=== PATIENT | female | born 1955 | race Caucasian/White ===

== ENCOUNTER 2020-05-31 09:48 | Emergency (ER) | payer MEDICARE, OTHER ==
[~2020-05-31] VITALS: Ht 157.5 cm; Wt 67.4 kg
[2020-05-31] MEDS ORDERED: NS 1,000 ML IV ONE (10:30)
--- NOTE | 2020-05-31 10:32 | REPVR ---
PROCEDURE INFORMATION: Exam: CT Head Without Contrast Exam date and time: 05/31/2020 10:12 AM Age: 65 years old Clinical indication: Syncope and collapse TECHNIQUE: Imaging protocol: Computed tomography of the head without contrast. Radiation optimization: All CT scans at this facility use at least one of these dose optimization techniques: automated exposure control; mA and/or kV adjustment per patient size (includes targeted exams where dose is matched to clinical indication); or iterative reconstruction. COMPARISON: No relevant prior studies available. FINDINGS: Brain: There is no acute intracranial hemorrhage or mass effect. Mild diffuse volume loss is within the range of normal for patient age. There are small vessel ischemic changes within the periventricular and subcortical white matter, but the normal bundy/white matter delineation is maintained. Ventricles: No ventriculomegaly. Bones/joints: Unremarkable. No acute fracture. Paranasal sinuses: Visualized sinuses are unremarkable. No fluid levels. Mastoid air cells: Visualized mastoid air cells are well aerated. Soft tissues: Unremarkable. IMPRESSION: No acute hemorrhage or edema. Electronically signed by: Jen Montiel On 05/31/2020 10:31:44 AM
--- NOTE | 2020-05-31 10:37 | REPVR ---
PROCEDURE INFORMATION: Exam: XR Chest, 1 View Exam date and time: 05/31/2020 10:12 AM Age: 65 years old Clinical indication: Shortness of breath; Additional info: Syncope/near-syncope TECHNIQUE: Imaging protocol: XR of the chest Views: 1 view. COMPARISON: No relevant prior studies available. FINDINGS: Lungs: Unremarkable. No consolidation. Pleural space: Unremarkable. No pleural effusion. No pneumothorax. Heart/Mediastinum: Unremarkable. No cardiomegaly. Bones/joints: Unremarkable. IMPRESSION: No acute findings. Electronically signed by: Jen Montiel On 05/31/2020 10:36:49 AM
[2020-05-31] MEDS ORDERED: ISOVUE-370 76% 100ML VIAL As Ordered ONE (10:44)
[2020-05-31 10:54] LABS: BASO % 0.2 % (0.0-1.0); EOS % 0.3 % (0.0-3.0); HEMATOCRIT 40.7 % (36.0-47.0); HEMOGLOBIN 14.5 g/dl (12.0-15.5); LYMPH % 7.8 % (24.0-44.0); MEAN CORPUSCULAR HEMOGLOBIN 30.2 pg (27.0-33.0); MEAN CORPUSCULAR HGB CONC 35.6 g/dl (32.0-36.5); MEAN CORPUSCULAR VOLUME 84.8 fl (80.0-96.0); MONO # 1.6 10^3/uL (0.0-0.8); NEUTROPHILS # 9.8 10^3/uL (1.5-8.5); NEUTROPHILS % 78.3 % (36.0-66.0); PLATELET COUNT, AUTOMATED 319 10^3/uL (150-450); WHITE BLOOD COUNT 12.5 10^3/uL (4.0-10.0)
[2020-05-31] MEDS ORDERED: ASPIRIN 81 MG CHEW TABLET PO ONE (11:00)
[2020-05-31] MEDS ORDERED: POTASSIUM CHLORIDE 10 MEQ SR TABLET PO ONE (11:00)
[2020-05-31] MEDS ORDERED: NITROGLYCERIN/D5W 100MCG/ML 250 ML IV SCH (11:07)
--- NOTE | 2020-05-31 11:31 | REPVR ---
PROCEDURE INFORMATION: Exam: CT Angiography Chest With Contrast Exam date and time: 05/31/2020 10:40 AM Age: 65 years old Clinical indication: Chest pain; Additional info: RO pe TECHNIQUE: Imaging protocol: Computed tomographic angiography of the chest with intravenous contrast. 3D rendering (Not supervised by radiologist): MIP and/or 3D reconstructed images were created by the technologist. Radiation optimization: All CT scans at this facility use at least one of these dose optimization techniques: automated exposure control; mA and/or kV adjustment per patient size (includes targeted exams where dose is matched to clinical indication); or iterative reconstruction. Contrast material: ISOVUE 370; Contrast volume: 75 ml; Contrast route: INTRAVENOUS (IV); COMPARISON: CR PORTABLE CHEST X-RAY 05/31/2020 10:24 AM FINDINGS: Pulmonary arteries: Normal. No pulmonary emboli. Aorta: Unremarkable. No aortic aneurysm. No aortic dissection. Lungs: There is a 5 mm nodule within the right middle lobe. There are right basilar dependent atelectatic changes. Pleural space: Unremarkable. No pneumothorax. No pleural effusion. Heart: Unremarkable. No cardiomegaly. No pericardial effusion. Lymph nodes: Unremarkable. No enlarged lymph nodes. Bones/joints: Unremarkable. No acute fracture. Soft tissues: Unremarkable. IMPRESSION: 1. No pulmonary embolism. 2. 5 mm right middle lobe pulmonary nodule. Per Fleischner Society Pulmonary nodule recommendations, in a low risk patient no routine imaging follow-up is indicated. Electronically signed by: Jen Montiel On 05/31/2020 11:31:18 AM
[2020-05-31 11:33] LABS: CALCIUM LEVEL 9.4 MG/DL (8.8-10.2); CREATININE FOR GFR 1.02 MG/DL (0.55-1.30); FREE T4 1.23 NG/DL (0.76-1.46); GLOMERULAR FILTRATION RATE 57.9 (>45); POTASSIUM SERUM 2.7 MEQ/L (3.5-5.1); THYROID STIMULATING HORMONE 0.804 uIU/ML (0.358-3.740)
[2020-05-31] MEDS ORDERED: HEPARIN DRIP 25,000 UNITS in IV 1 EA IV SCH (11:49)
[2020-05-31 11:56] LABS: MAGNESIUM LEVEL 2.1 MG/DL (1.8-2.4)
[2020-05-31] MEDS ORDERED: HEPARIN SOD (PORCINE) 5000UNITS/ML 1ML VIAL/SYRINGE IV ONE (12:00)
[2020-05-31] MEDS ORDERED: CLOPIDOGREL 300 MG TAB (PLAVIX) PO ONE (12:00)
[2020-05-31 13:55] VITALS: BP 92/61
--- NOTE | 2020-05-31 20:29 | ECGEPIP ---
[facility] - ED Test Date: 2020-05-31 Pat Name: LAURA ROBIN Department: Room: - Gender: Female [employer] Operator: liborio trejo : 1955 Requested By: Kristy Rider Order Number: [id number] Reading MD: Shayy Lott Measurements Intervals [place] Rate: 100 P: 77 SD: 145 QRS: 68 QRSD: 95 T: 43 QT: 346 QTc: 447 Interpretive Statements SINUS TACHYCARDIA WITH FREQUENT SUPRAVENTRICULAR PREMATURE COMPLEXES ABNORMAL RHYTHM ECG DELAYED R PROGRESSION NSTTW abnormalities NO PRIOR Electronically Signed on 05-31-2020 20:28:35 EDT by Shayy Lott
== END 2020-05-31 14:03 | disposition short-term general hospital (02) ==
LOC: M ED 09:48
DX: I21.4 Non-ST elevation (NSTEMI) myocardial infarction (principal); E87.6 Hypokalemia; R91.1 Solitary pulmonary nodule; F17.200 Nicotine dependence, unspecified, uncomplicated; Z88.1 Allergy status to other antibiotic agents
CPT/HCPCS: 70450; 71045; 71275; 80047; 80048; 83735; 84439; 84443; 84484; 85025; 93005; 93041; 94760; 96361; 96374; 96375; 99285; J1644; Q9967; U0002

== ENCOUNTER → 2021-07-12 | Outpatient (CLI) | payer MEDICARE ==
[~2021-07-12] MED LIST: ISOVUE-370 76% 100ML VIAL As Ordered ONE
--- NOTE | 2021-07-12 12:02 | REP ---
INDICATION: F/U GALLSTONE, SYNCOPE, PULMONARY NODULE -US APPT 0800. COMPARISON: CT angio chest 05/31/2020 TECHNIQUE: Bolus 75 mL Isovue 370 scanning through the chest with both coronal and sagittal reconstructions provided FINDINGS: Right middle lobe lateral segment shows a stable 5 mm subpleural nodule best seen on image 55. There is a sub 4 mm nodule on image 64 superior segment right lower lobe which is unchanged. It was partly obscured in some dependent atelectatic changes on the previous study. The other sub 4 mm nodule on image 73 in the medial basal segment of the right lower lobe was not definitely visible on the previous study. Some subsegmental atelectatic change and or scar at the posterior insertion of the right major fissure noted as before. Some bilateral apical pleuroparenchymal scarring is minimal with stable 4 mm semi solid nodule seen on image 20 perifissural in the posterior segment of the left upper lobe. A pleural based sub 4 mm nodule also noted in the superior segment of the left lower lobe at lateral insertion on image 33 unchanged. There are no other significant lung findings aside from mild cylindrical bronchiectatic change. No effusion or acute infiltrate. Heart is not enlarged there is no pericardial thickening or effusion. The aorta is without aneurysm or dissection. The main, right and left pulmonary arteries are without filling defects and are prominent but taper rapidly passed the qing consistent with pulmonary artery hypertension, presumably on the basis of COPD. No pathologic sized mediastinal, hilar axillary or supraclavicular adenopathy. Bone windows show the sternum, manubrium, medial clavicles, visualized portions of scapula and humeral heads, ribs and spine without destructive lesion or fracture. That portion of upper abdomen included shows no hepatosplenomegaly. Small cm sized hepatic cyst noted on image 100 the right lobe. Gallbladder without calcified stone or mass. Visualized pancreas, adrenal glands, spleen and upper poles of kidneys intact. No hiatal hernia. IMPRESSION: 1. Stable 5 mm lateral segment right middle lobe pulmonary nodule compared to last year. There are a few other sub 4 mm peripheral nodules which appear stable except for 1 new sub 4 mm nodule on image 73 in the medial basal segment right lower lobe. If the patient is at high risk for development of lung malignancy, annual low-dose screening CT is recommended. Otherwise no follow-up necessary. 2. Some COPD with pulmonary artery hypertension, mild cylindrical bronchiectatic changes some mild fibrotic changes. No effusion, infiltrate, pleural based mass or other significant finding. 3. No other significant or acute finding. <Electronically signed by Lalit Hamilton > 07/12/21 [id number]
--- NOTE | 2021-07-12 13:27 | REP ---
INDICATION: F/U GALLSTONE, SYNCOPE, PULMONARY NODULE. COMPARISON: The only prior right upper quadrant ultrasound for comparison is dated 06/23/2020 from [facility]. TECHNIQUE: Real-time sonographic evaluation of the right upper quadrant with Doppler FINDINGS: Multiple ultrasonographic images of the liver show the hepatic parenchymal echo texture to appear unchanged. There are no focal masses. There are 2 tiny incidental hepatic cysts status quo. There is no intrahepatic ductal dilatation. The common bile duct measures approximately 5 mm in its greatest transverse dimension. Multiple ultrasonographic images of the gallbladder show no focal or diffuse gallbladder wall thickening. There are no echogenic foci within the gallbladder lumen, which casts acoustic shadows. There is no pericholecystic edema. Once again, nonshadowing echogenic foci are again seen within the gallbladder which are nonmobile and are unchanged. Images of the pancreatic region show no gross abnormality. The imaged portion of the right kidney is unremarkable. IMPRESSION: 1. Unchanged incidental hepatic cysts. 2. Unchanged gallbladder polyps or sludge balls. Follow-up is suggested. Accredited by the [employer] in General Ultrasound. <Electronically signed by Geovany Archuleta > 07/12/21 [id number]
--- NOTE | 2021-07-12 14:21 | REP ---
INDICATION: F/U GALLSTONE, SYNCOPE, PULMONARY NODULE COMPARISON: 06/01/2020. TECHNIQUE: Real-time ultrasound evaluation and duplex Doppler interrogation of the extracranial carotid vasculature is performed. FINDINGS: There is minimal plaquing and narrowing in both carotid bulbs extending into the internal and external carotid arteries. Luminal narrowing is less than 50%. There is no evidence of hemodynamically significant stenosis of either internal carotid artery. Normal flow velocities are seen. The vertebral arteries demonstrate normal direction of flow. RIGHT LEFT Peak systolic velocity ICA 86.1 cm/s 92.3 cm/s End diastolic velocity ICA 35.2 cm/s 42.9 cm/s Peak systolic velocity CCA 74.1 cm/s 72.1cm/s Peak systolic velocity ECA 58.9 cm/s 94.7 cm/s ICA/CCA ratio 1.2 1.3 IMPRESSION: Bilateral luminal narrowing of the internal carotid arteries less than 50%. No evidence of hemodynamically significant stenosis. <Electronically signed by Harley Pack > 07/12/21 [id number]
== END ==
LOC: M RAD 07:26
PROVIDERS: ATTEND Nurse Practitioner Adult Health
DX: R91.1 Solitary pulmonary nodule (principal); R55 Syncope and collapse; K80.80 Other cholelithiasis without obstruction; K76.89 Other specified diseases of liver
CPT/HCPCS: 71260; 76705; 93880; Q9967

== ENCOUNTER → 2021-08-26 | Outpatient (CLI) | payer MEDICARE | LOC: M WHC 11:17 | PROVIDERS: ATTEND Nurse Practitioner Adult Health | DX: Z12.31 Encounter for screening mammogram for malignant neoplasm of breast (principal); Z78.0 Asymptomatic menopausal state ==

== ENCOUNTER → 2022-08-28 | Outpatient (CLI) | payer MEDICARE | LOC: M WHC 07:53 | PROVIDERS: ATTEND Nurse Practitioner Adult Health | DX: Z12.31 Encounter for screening mammogram for malignant neoplasm of breast (principal) ==

== ENCOUNTER → 2023-06-21 | Outpatient (CLI) | payer MEDICARE | LOC: M PLAIMG 10:36 | PROVIDERS: ATTEND Physician Assistant Medical | DX: R91.1 Solitary pulmonary nodule (principal) ==

== ENCOUNTER → 2023-10-11 | Outpatient (CLI) | payer MEDICARE | LOC: M WHC 13:56 | PROVIDERS: ATTEND Nurse Practitioner Adult Health | DX: Z12.31 Encounter for screening mammogram for malignant neoplasm of breast (principal) ==

== ENCOUNTER 2024-10-22 09:24 | Day surgery (SDC) | payer MEDICARE ==
[~2024-10-22] VITALS: Ht 157.5 cm; Wt 64.7 kg
[~2024-10-22 09:24] MED LIST changes: -ISOVUE-370 76% 100ML VIAL As Ordered ONE; +MIDAZOLAM INJ 2MG/2ML VIAL As Ordered ONE; +PHENYLEPHRINE 10% OPHTH SOL 5ML OD PRN; +POTA-298 PO
[2024-10-22] MEDS: TROPICAMIDE 1% OPHTH SOLN 15ML OD SCH (10:05)
[2024-10-22] MEDS: OFLOXACIN 0.3 % (OCUFLOX) OPTH SOL 5ML OD ONE (10:05)
[2024-10-22] MEDS: LIDOCAINE 3.5 % 1ML OPHTH TOPICAL GEL OU ONE (10:05)
[2024-10-22] MEDS: PHENYLEPHRINE 2.5% OPHTH SOL 2ML OD SCH (10:05)
[2024-10-22] MEDS: CYCLOPENTOLATE 1% OPHTH SOLN 2ML BTL OD SCH (10:05)
[2024-10-22] MEDS: BSS IRRIG/VANCO(10MG)/TOBRA(5MG)/EPINEPH(1:1000-0.5CC)500ML BAG-ORONLY As Ordered ONE (11:47)
[2024-10-22] MEDS: CEFUROXIME 1MG/0.1ML INTRACAMERAL INJ As Ordered ONE (11:47)
[2024-10-22] MEDS: LIDOCAINE 1% SDV 5ML VIAL As Ordered ONE (11:47)
[2024-10-22 11:59] VITALS: BP 115/59; TEMP 97.4; O2SAT 99
== END 2024-10-22 12:25 | disposition home or self-care (01) ==
LOC: M SDC 09:24
PROVIDERS: ATTEND Ophthalmology
DX: H25.11 Age-related nuclear cataract, right eye (principal); E87.6 Hypokalemia; Z88.1 Allergy status to other antibiotic agents; M25.512 Pain in left shoulder
CPT/HCPCS: 66984; 92015; J0697; J2250; V2632

== ENCOUNTER → 2024-10-30 | Outpatient (CLI) | payer MEDICARE ==
[~2024-10-30] MED LIST changes: -MIDAZOLAM INJ 2MG/2ML VIAL As Ordered ONE; -PHENYLEPHRINE 10% OPHTH SOL 5ML OD PRN
== END ==
LOC: M SOG 08:48
PROVIDERS: ATTEND Physician Assistant
DX: M25.512 Pain in left shoulder (principal); M19.012 Primary osteoarthritis, left shoulder

== ENCOUNTER 2024-12-25 06:47 | Day surgery (SDC) | payer MEDICARE ==
[~2024-12-25] VITALS: Ht 160 cm; Wt 65.8 kg
[2024-12-25 08:15] VITALS: TEMP 97.4
[2024-12-25 08:32] VITALS: BP 102/55; O2SAT 100
== END 2024-12-25 08:35 | disposition home or self-care (01) ==
LOC: M OPP 06:47
PROVIDERS: ATTEND Surgery
DX: Z12.11 Encounter for screening for malignant neoplasm of colon (principal); R19.5 Other fecal abnormalities; D12.6 Benign neoplasm of colon, unspecified; K57.30 Diverticulosis of large intestine without perforation or abscess without bleeding; K64.8 Other hemorrhoids; Z88.1 Allergy status to other antibiotic agents; Z88.8 Allergy status to other drugs, medicaments and biological substances